=== PATIENT | male | born 1945 | race Caucasian/White ===

== ENCOUNTER 2021-08-19 15:01 | Inpatient (IN) | payer MEDICARE, MEDICAID ==
[~2021-08-19] VITALS: Ht 175.3 cm; Wt 46.7 kg
[~2021-08-19 15:01] MED LIST: ALBUTEROL2.5 MG/3 M INH; AMOX TR-K CLV1 EAC4 PO; ASPIRIN EC81 MG PO; DILTIAZEM 24HR120 M1 PO; DOXYCYCLINE HY100 MG PO; ELIQUIS 5 MG TAB5 MG GT; ELIQUIS 5 MG TAB5 MG PO; LEVALBUTER0.63 MG/3 NEB; PEG3350510 GM PO; PROTONIX40 MG PO; SPIRIVA HANDIH18 MCG INH; SYMBICORT 16010.2 GM INH; VENTOLIN HFA 66.7 GM INH
[2021-08-19 16:08] LABS: HEMOGLOBIN 14.6 gm/dl (14.0-17.5); RED BLOOD COUNT 4.73 M/UL (4.20-5.50); WHITE BLOOD COUNT 16.5 K/UL (4.5-11.0)
[2021-08-19 16:35] LABS: BUN/CREATININE RATIO 28 (0-10)
[2021-08-20 02:25] LABS: HEMOGLOBIN 14.5 gm/dl (14.0-17.5); RED BLOOD COUNT 4.68 M/UL (4.20-5.50); WHITE BLOOD COUNT 13.4 K/UL (4.5-11.0)
[2021-08-20 02:48] LABS: BUN/CREATININE RATIO 28 (0-10)
[2021-08-20] MEDS ORDERED: PROVENTIL HFA6.7 GM INH (12:46)
[2021-08-20] MEDS ORDERED: ALBUTEROL2.5 MG/3 M INH (12:48)
[2021-08-20] MEDS ORDERED: DEBROX15 ML EARBOTH (12:48)
[2021-08-20 21:48] LABS: CANDIDA ALBICANS Not Detected (Negative); CANDIDA KRUSEI Not Detected (Negative); CANDIDA TROPICALIS Not Detected (Negative); ESCHERICHIA COLI Not Detected (Negative); HAEMOPHILUS INFLUENZAE Not Detected (Negative); KLEBSIELLA OXYTOCA Not Detected (Negative); KLEBSIELLA PNEUMONIAE Not Detected (Negative); KPC-CARBAPENEM-RESISTANCE GENE Not Detected (Negative); PROTEUS Not Detected (Negative); PSEUDOMONAS AERUGINOSA Not Detected (Negative); SERRATIA MARCESANS Not Detected (Negative); STAPHYLOCOCCUS AUREUS Not Detected (Negative); STREP AGALACTIAE (GROUP B) Not Detected (Negative); STREP PYOGENES (GROUP A) Not Detected (Negative); STREPTOCOCCUS Not Detected (Negative); vanA/B (VANCOMYCIN RESIST GENE Not Detected (Negative)
[2021-08-20 23:18] LABS: STAPHYLOCOCCUS DETECTED (Negative)
[2021-08-21 01:10] LABS: HEMOGLOBIN 14.2 gm/dl (14.0-17.5); RED BLOOD COUNT 4.53 M/UL (4.20-5.50)
[2021-08-21 01:16] LABS: WHITE BLOOD COUNT 24.8 K/UL (4.5-11.0)
[2021-08-21 01:35] LABS: BUN/CREATININE RATIO 44 (0-10)
[2021-08-22 03:17] LABS: HEMOGLOBIN 13.2 gm/dl (14.0-17.5); RED BLOOD COUNT 4.3 M/UL (4.20-5.50)
[2021-08-22 03:20] LABS: WHITE BLOOD COUNT 14.2 K/UL (4.5-11.0)
[2021-08-22 03:56] LABS: BUN/CREATININE RATIO 41 (0-10)
[2021-08-23 03:14] LABS: HEMOGLOBIN 14.2 gm/dl (14.0-17.5); RED BLOOD COUNT 4.46 M/UL (4.20-5.50)
[2021-08-23 03:17] LABS: WHITE BLOOD COUNT 10.3 K/UL (4.5-11.0)
[2021-08-23 04:19] LABS: BUN/CREATININE RATIO 39 (0-10)
[2021-08-24 05:06] LABS: BUN/CREATININE RATIO 35 (0-10)
[2021-08-25 04:09] LABS: BUN/CREATININE RATIO 41 (0-10)
[2021-08-25] MEDS ORDERED: SYMBICORT 16010.2 GM INH (08:34)
[2021-08-25] MEDS ORDERED: MYCOSTATIN100000 UTS PO (08:34)
[2021-08-25] MEDS ORDERED: MEDROL DOSEPAK 24 MG PO (08:34)
[2021-08-25] MEDS ORDERED: SPIRIVA RESPIMAT4 GM INH (08:40)
== END 2021-08-25 13:00 | disposition home or self-care (01) | DRG 202 ==
LOC: ER1 15:01 → CDU 20:11 → M/S 20:11
PROVIDERS: Internal Medicine; Physician Assistant; Student in an Organized Health Care Education/Training Program; ADMIT Internal Medicine
DX: J20.9 Acute bronchitis, unspecified (principal); J44.1 Chronic obstructive pulmonary disease with (acute) exacerbation; J44.0 Chronic obstructive pulmonary disease with (acute) lower respiratory infection; J96.11 Chronic respiratory failure with hypoxia; E44.1 Mild protein-calorie malnutrition; Z68.1 Body mass index [BMI] 19.9 or less, adult; R64 Cachexia; B37.0 Candidal stomatitis; Z20.822 Contact with and (suspected) exposure to COVID-19; I48.0 Paroxysmal atrial fibrillation; E03.9 Hypothyroidism, unspecified; K44.9 Diaphragmatic hernia without obstruction or gangrene; D72.829 Elevated white blood cell count, unspecified; R00.0 Tachycardia, unspecified; K21.9 Gastro-esophageal reflux disease without esophagitis; Z86.711 Personal history of pulmonary embolism; Z99.81 Dependence on supplemental oxygen; Z98.890 Other specified postprocedural states; Z88.0 Allergy status to penicillin; Z79.01 Long term (current) use of anticoagulants; Z85.3 Personal history of malignant neoplasm of breast; Z87.891 Personal history of nicotine dependence
CPT/HCPCS: 0240U; 36415; 36600; 71045; 71046; 80048; 80053; 80202; 81001; 82550; 82553; 82803; 83605; 83735; 84484; 85025; 85379; 87040; 87086; 87150; 93005; 94640; 94664; 94760; 96374; 99285; J1100; J1650; J2270; J2920; J3370; J7070; Q9967

== ENCOUNTER 2021-09-15 07:59 | Inpatient (IN) | payer MEDICARE, OTHER ==
[~2021-09-15] VITALS: Ht 175.3 cm; Wt 43.8 kg
[~2021-09-15 07:59] MED LIST changes: +DEBROX15 ML EARBOTH; +MEDROL DOSEPAK 24 MG PO; +MYCOSTATIN100000 UTS PO; +PROVENTIL HFA6.7 GM INH; +SPIRIVA RESPIMAT4 GM INH
[2021-09-15 08:25] LABS: HEMOGLOBIN 14.2 gm/dl (14.0-17.5); RED BLOOD COUNT 4.54 M/UL (4.20-5.50); WHITE BLOOD COUNT 9.6 K/UL (4.5-11.0)
[2021-09-15 09:37] LABS: BUN/CREATININE RATIO 18 (0-10)
[2021-09-15] MEDS ORDERED: SYMBICORT 16010.2 GM INH (14:05)
[2021-09-16 02:02] LABS: HEMOGLOBIN 13.9 gm/dl (14.0-17.5); RED BLOOD COUNT 4.54 M/UL (4.20-5.50)
[2021-09-16 02:03] LABS: WHITE BLOOD COUNT 5.6 K/UL (4.5-11.0)
[2021-09-16 02:29] LABS: BUN/CREATININE RATIO 24 (0-10)
[2021-09-18 03:50] LABS: HEMOGLOBIN 12.6 gm/dl (14.0-17.5); RED BLOOD COUNT 4.18 M/UL (4.20-5.50)
[2021-09-18 04:08] LABS: BUN/CREATININE RATIO 23 (0-10)
[2021-09-19 02:16] LABS: BUN/CREATININE RATIO 27 (0-10)
[2021-09-20 02:29] LABS: BUN/CREATININE RATIO 20 (0-10)
[2021-09-21 01:58] LABS: HEMOGLOBIN 12.1 gm/dl (14.0-17.5); RED BLOOD COUNT 3.92 M/UL (4.20-5.50); WHITE BLOOD COUNT 9.7 K/UL (4.5-11.0)
[2021-09-21 02:50] LABS: BUN/CREATININE RATIO 18 (0-10)
[2021-09-21] MEDS ORDERED: PROTONIX 40 MG40 M1 PO (09:38)
[2021-09-21] MEDS ORDERED: FLOMAX 0.4 MG0.4 MG PO (09:38)
[2021-09-21] MEDS ORDERED: PERCOCET 5/325 T1 EA PO (09:38)
[2021-09-21] MEDS ORDERED: AMOX TR-K CLV1 EAC4 PO (09:38)
[2021-09-21] MEDS ORDERED: AMLODIPINE BESYL5 MG PO (09:38)
[2021-09-21] MEDS ORDERED: IPRAT-ALBUT 0.5-3 ML INH (10:01)
--- NOTE | 2021-09-21 14:28 | NUR ---
REPORT CALLED TO [facility] PATIENT.
== END 2021-09-21 13:40 | disposition home or self-care (01) | DRG 177 ==
LOC: ER1 07:59 → PROG CARE 10:54 → CDU 10:54 → PROG CARE 13:35
PROVIDERS: Internal Medicine; Physician Assistant Medical; Student in an Organized Health Care Education/Training Program; ADMIT Internal Medicine
DX: J69.0 Pneumonitis due to inhalation of food and vomit (principal); J96.21 Acute and chronic respiratory failure with hypoxia; E43 Unspecified severe protein-calorie malnutrition; I47.1 Supraventricular tachycardia; Z20.822 Contact with and (suspected) exposure to COVID-19; K56.7 Ileus, unspecified; Z68.1 Body mass index [BMI] 19.9 or less, adult; K21.9 Gastro-esophageal reflux disease without esophagitis; F17.210 Nicotine dependence, cigarettes, uncomplicated; N40.1 Benign prostatic hyperplasia with lower urinary tract symptoms; J43.9 Emphysema, unspecified; R33.8 Other retention of urine; R13.10 Dysphagia, unspecified; R53.81 Other malaise; Z86.711 Personal history of pulmonary embolism; Z79.01 Long term (current) use of anticoagulants; Z86.718 Personal history of other venous thrombosis and embolism; Z90.49 Acquired absence of other specified parts of digestive tract; Z88.0 Allergy status to penicillin; Z80.3 Family history of malignant neoplasm of breast
CPT/HCPCS: 36415; 36600; 71045; 74018; 74230; 80048; 80053; 82378; 82550; 82553; 82803; 83735; 83880; 84484; 85025; 85027; 86140; 87070; 87081; 87086; 87205; 92526; 92610; 92611-GN; 93005; 94640; 94664; 94760; 96365; 96366; 96374; 96375; 97161; 97166; 99285; G0103; G0378; J1100; J1335; J7030; Q9967

== ENCOUNTER → 2021-10-03 | Outpatient (CLI) | payer MEDICARE ==
[~2021-10-03] MED LIST changes: +AMLODIPINE BESYL5 MG PO; +FLOMAX 0.4 MG0.4 MG PO; +IPRAT-ALBUT 0.5-3 ML INH; +PERCOCET 5/325 T1 EA PO; +PROTONIX 40 MG40 M1 PO
== END ==
LOC: LAB 10:57
DX: N40.0 Benign prostatic hyperplasia without lower urinary tract symptoms (principal)
CPT/HCPCS: 36415; 84153

== ENCOUNTER → 2021-11-16 | Outpatient (CLI) | payer MEDICARE | LOC: CT 09:34 | DX: N32.89 Other specified disorders of bladder (principal); N40.0 Benign prostatic hyperplasia without lower urinary tract symptoms; R33.9 Retention of urine, unspecified | CPT/HCPCS: 72194; Q9967 ==